=== PATIENT | male | born 1970 | race Caucasian/White ===

== ENCOUNTER 2021-02-28 01:51 | Day surgery (SDC) | payer OTHER, SELFPAY ==
[2021-02-18 13:02] VITALS: BMI 33.2
[2021-02-28 09:43] VITALS: BP 139/86; PULSE 83; RESP 18; TEMP 36.1; O2SAT 98
[2021-02-28] MEDS: LACTATED RINGERS 1,000 ML 150 ML IV CONT (09:53)
--- NOTE | 2021-02-28 09:59 | P.PNAN_ITS ---
Anes - Initial Pre Proc Eval Procedure: Operation Date: 02/28/21 10:30 Proposed Procedures p Screening Colonoscopy - Jax Conte MD Date/Time: 02/28/21 09:59 Surgeon: Jax Conet MD Pre Op Diagnosis: neoplasm screening Patient Data Age: 50 Gender: M Height: 1.78 m Weight: 105.6 kg Last Vital Signs Temp 36.1 C L 02/28/21 09:43 Pulse 83 02/28/21 09:43 Resp 18 02/28/21 09:43 BP 139/86 02/28/21 09:43 Pulse Ox 98 02/28/21 09:43 Allergies Allergy/AdvReac Type Severity Reaction Status Date / Time morphine Allergy Unknown Other Verified 02/28/21 09:42 Home Medications Medication Instructions Recorded Confirmed Type No Home Medications 02/18/21 02/18/21 History Patient hx anesthesia problems: none Family hx anesthesia problems: none Results Review: All pre-operative results and documents have been reviewed as part of the pre-operative evaluation. [facility] Past Medical History Medical History (Updated 02/28/21 @ 09:59 by Gerson Ledesma MD) Overweight Surgical History Surgical History (Updated 02/28/21 @ 09:59 by Gerson Ledesma MD) S/P thoracotomy Family History Family History Other Cerebrovascular accident Diabetes mellitus Family history of arthritis Family history of gout Hypertension Social History Social History Smoking status: Former smoker Tobacco type: cigarettes Alcohol intake: current Drinks per week: 8 Living arrangements: with family Spiritual care concerns: No Anes - Eval Final PreProcedure Day of Procedure 02/28/21 09:59 Patient weight: obese Heart: regular rate and rhythm Lungs: clear to auscultation Airway: Mallampati scale class II Neurological: alert and oriented Last oral intake: >/= 8 hours ASA classification: II Emergent: no Anesthetic plan: proceed Anesthesia type and monitoring: general GIVS and standard monitoring Results Review: All pre-operative results and documents have been reviewed as part of the pre-operative evaluation. Informed Consent: The patient's anesthetic plan and its attendant risks and benefits were discussed with the patient/family/POA. Questions were solicited and answers provided to the satisfaction of the patient/family/POA.
--- NOTE | 2021-02-28 10:22 | PM.HPGS ---
History of Present Illness History of Present Illness Consent: Risks, benefits, and alternatives have been discussed and questions answered. Patient agrees to proceed with procedure. Chief complaint: neoplasm screening Narrative: Jaime Moya is a 50 year old male here for first screening colonoscopy Review of Systems Constitutional: Constitutional: Denies headache(s) and Denies weakness Eyes: Eyes: Denies blurry vision ENT: Reports Normal hearing present, Denies headache(s) and Denies neck pain Cardiovascular: Cardiovascular: Denies chest pain and Denies dyspnea Respiratory: Respiratory: Denies dyspnea Gastrointestinal: Gastrointestinal: Reports no additional gastrointestinal complaints Genitourinary: Genitourinary: Denies dysuria Musculoskeletal: Musculoskeletal: Denies neck pain Integumentary/Breasts: Skin/Breast: Denies dry skin Neurologic: Reports Normal hearing present, Denies headache(s) and Denies weakness Psychiatric: Psychiatric: Denies anxiety Endocrine: Endocrine: Denies change in body appearance Hematologic/Lymphatic: Hematologic/Lymphatic: Denies easy bleeding Allergic/Immunologic: Allergic/Immunologic: Denies urticaria PMFSH Past Medical History Medical History (Updated 02/28/21 @ 10:22 by Jax Conte MD) Colon cancer screening Overweight Surgical History Surgical History (Updated 02/28/21 @ 09:59 by Gerson Ledesma MD) S/P thoracotomy Family History Family History Other Cerebrovascular accident Diabetes mellitus Family history of arthritis Family history of gout Hypertension Social History Social History Smoking status: Former smoker Tobacco type: cigarettes Alcohol intake: current Drinks per week: 8 Living arrangements: with family Spiritual care concerns: No Meds Home Medications and Allergies Home Medications Medication Instructions Recorded Confirmed Type No Home Medications 02/18/21 02/18/21 History Allergies Allergy/AdvReac Type Severity Reaction Status Date / Time morphine Allergy Unknown Other Verified 02/28/21 09:42 Vital Signs Vital Signs - 24 hr 02/28/21 09:43 Temperature 97.0 F L Pulse Rate 83 Respiratory Rate 18 Blood Pressure 139/86 Pulse Oximetry 98 Exam Const: General: comfortable and no acute distress HENMT: General nose exam: Normal nares present Eyes: General: appearance normal, both eyes and all related structures Neck: Neck: no JVD Resp: Auscultation: clear to auscultation bilaterally Cardio: Rate: regular rate Rhythm: regular rhythm GI: Inspection: non-distended GI Palp: Yes Soft to palpation Skin: General skin exam: normal color Neuro: General: gait normal Speech: normal speech Extrem: General: normal to inspection Psych: Mental Status: mental status grossly normal Assessment and Plan Assessment and plan (1) Colon cancer screening: Code(s): Z12.11 - Encounter for screening for malignant neoplasm of colon Status: Acute Assessment and Plan: colonoscopy
[2021-02-28 10:46] VITALS: BP 116/71; PULSE 91; RESP 15; O2SAT 99
[2021-02-28 10:56] VITALS: PULSE 83; RESP 17; O2SAT 98
[2021-02-28 11:01] VITALS: BP 125/77; PULSE 76; RESP 22; O2SAT 99
== END 2021-02-28 11:15 | disposition home or self-care (01) ==
PROVIDERS: PCP Family Medicine; Visit Provider Internal Medicine Gastroenterology
PROC: 0DJD8ZZ Inspection of Lower Intestinal Tract, Via Natural or Artificial Opening Endoscopic (ICD-10-PCS; CPT 45378; principal; 2021-02-28 10:30)
DX: Z12.11 Encounter for screening for malignant neoplasm of colon (principal); D12.4 Benign neoplasm of descending colon; D12.5 Benign neoplasm of sigmoid colon; K57.30 Diverticulosis of large intestine without perforation or abscess without bleeding; K64.8 Other hemorrhoids
CPT/HCPCS: 45385; 88305; J2704; J7120

== ENCOUNTER 2023-04-06 16:06 | Emergency (ER) | payer OTHER, SELFPAY ==
--- NOTE | ~2023-04-06 | XR_ITS ---
XR chest 1V DATE: 04/06/2023 16:53 INDICATION: Cough, fever TECHNIQUE: PA chest COMPARISON: None FINDINGS: There is prominent patchy consolidation of the left lung, particularly prominent in the lef t mid and upper lung [place]. The right lung is clear. Normal heart size. No pleural effusion or pneumothorax is detected. Mild thoracic scoliosis. IMPRESSION: Extensive left lung infiltrate, likely due to pneumonia Reviewed, dictated and finalized at location B. IOVASCULAR TECHNOLOGIST
[2023-04-06 16:08] VITALS: BP 153/109; PULSE 123; RESP 22; TEMP 39.3; O2SAT 100
[2023-04-06 17:06] LABS: Influenza A QL RT-PCR Negative (Negative); Influenza B QL RT-PCR Negative (Negative); RSV RNA, RT-PCR Negative (Negative); SARS-CoV-2 RNA PCR Negative (Negative)
--- NOTE | 2023-04-06 20:21 | ECG_ITS ---
Measurements Intervals [place] Rate: 92 P: 65 NE: 144 QRS: 19 QRSD: 96 T: 42 QT: 296 QTc: 367 Interpretive Statements SINUS RHYTHM DELAYED PRECORDIAL R/S TRANSITION BASELINE ARTIFACT- I, II, AVR, AVF BORDERLINE ECG NO PREVIOUS ECG AVAILABLE FOR COMPARISON Electronically Signed On 04-07-2023 8:10:58 [employer]NAGER PERFORMANCE by Zaki Pathak D.O.
--- NOTE | 2023-04-06 20:22 | ED.URI ---
HPI - URI/Sore Throat General Chief Complaint: Upper Respiratory Infection <Nury Odonnell PA-C - Last Filed: 04/06/23 23:56> Stated Complaint: fever X5 days <ANGELICA Wiley Last Filed: 04/06/23 23:56> Time Seen by Provider: 04/06/23 20:02 <Nury Odonnell PA-C - Last Filed: 04/06/23 23:56> History of Present Illness HPI Narrative: 52-year-old male reports for evaluation with his at bedside for URI symptoms and fever x5 days. Patient states 5 days ago, he began feeling ill so took his temperature and it was around 102. States since then his temperature has been between 102-103 at home. He reports a intermittent productive cough, chills, diaphoresis and headache. States this headache is worse with coughing. He reports generalized malaise. States he went to his PCP's office 2 days ago and had a negative flu test. The was concerned that the patient did not really his symptoms effectively to the PCP, therefore called the PCP's office to describe patient's symptoms and they advised the patient to go to the ER for further evaluation. he denies chest pain, abdominal pain, nausea, vomiting, diarrhea, dysuria or hematuria, lower extremity edema or rash , sore throat or otalgia. <Nury Odonnell PA-C - Last Filed: 04/06/23 23:56> Related Data Allergies/Adverse Reactions: Allergies Allergy/AdvReac Type Severity Reaction Status Date / Time morphine Allergy Unknown Other Verified 04/06/23 20:47 <Nury Odonnell PA-C - Last Filed: 04/06/23 23:56> Review of Systems Review of Systems: CONSTITUTIONAL: See H EYES: Denies visual changes, redness, or discharge. ENT: see HPI CARDIOVASCULAR: Denies chest pain, palpitations, or edema. RESPIRATORY: see HPI GASTROINTESTINAL: Denies abdominal pain, nausea, vomiting, or diarrhea. GENITOURINARY: Denies dysuria or hematuria. SKIN: Denies rash or itching. MUSCULOSKELETAL: Denies back pain, joint pain, or myalgia. NEUROLOGIC: see HPI PSYCHIATRIC: Denies anxiety or depression. <Nury Odonnell PA-C - Last Filed: 04/06/23 23:56> [facility] Past Medical History Medical History: Medical History Colon cancer screening Overweight <Nury Odonnell PA-C - Last Filed: 04/06/23 23:56> Surgical History Surgical History: Surgical History S/P thoracotomy <Nury Odonnell PA-C - Last Filed: 04/06/23 23:56> Family History Family History: Family History Other Cerebrovascular accident Diabetes mellitus Family history of arthritis Family history of gout Hypertension <Nury Odonnell PA-C - Last Filed: 04/06/23 23:56> Social History Social History: Social History Smoking status: Former smoker Tobacco type: cigarettes Alcohol intake: current Drinks per week: 8 Living arrangements: with family Spiritual care concerns: No <Nury Odonnell PA-C - Last Filed: 04/06/23 23:56> Exam Narrative: GENERAL: ill-appearing. In no acute distress. HEAD: Normocephalic, atraumatic. EYES: PERRLA and EOMI. ENT: Nares clear, no rhinorrhea or epistaxis. Mucous membranes moist. posterior pharynx mildly erythematous. No tonsillar hypertrophy or edema. Uvula is midline. NECK: Supple. No nuchal rigidity CHEST: no respiratory distress. Mild crackles in the left lower lobe. No wheezing, rhonchi. HEART: Regular rate and rhythm. No murmur heard. Normal peripheral pulses. ABDOMEN: Soft, nontender, nondistended, normal active bowel sounds. No guarding, rebound or rigidity. EXTREMITIES: Normal range of motion. No edema. SKIN: Warm, dry, no rash. NEURO: No focal deficits. Alert and oriented x3 <Nury Odonnell PA-C - Last Filed: 04/06/23 23:56> [employer]/PA P
[2023-04-06] MEDS: ACETAMINOPHEN 500 MG TABLET 1000 MG PO (20:49)
[2023-04-06] MEDS: KETOROLAC 30 MG/ML VIAL (*BKC) IV PUSH (20:50)
[2023-04-06 20:53] LABS: Basophils Absolute Auto 0.1 K/mm3 (0.0-0.1); Basophils Percent Auto 0.5 % (0.2-1.2); Eosinophils Absolute Auto 0.2 K/mm3 (0-0.3); Hematocrit 44.9 % (42.0-52.0); Hemoglobin 15.4 g/dL (14.0-18.0); Immature Granulocyte Absolute 0.02 K/mm3 (0.00-0.031); Immature Granulocyte Percent A 0.2 % (0-0.5); Lymphocytes Absolute Auto 1.47 K/mm3 (0.9-3.2); Mean Corpuscular HGB Conc 34.3 g/dl (32-36); Mean Corpuscular Hemoglobin 32.7 pg (26-34); Mean Corpuscular Volume 95.3 fl (80-100); Mean Platelet Volume 11.1 fl (7.4-10.4); Monocytes Absolute Auto 0.8 K/mm3 (0.1-0.6); Monocytes Percent Auto 9.1 % (2.6-8.5); Neutrophils Absolute Auto 6.6 K/mm3 (1.3-6.7); Neutrophils Percent Auto 72.2 % (45.5-73.1); Platelet Count Result 282 k/mm3 (150-375); Red Blood Count 4.71 M/mm3 (4.6-6.20); Red Cell Distribution Width 12.5 % (11.5-14.5); White Blood Count 9.2 K/mm3 (4.5-10.0)
[2023-04-06 21:09] LABS: Prothrombin Time 13.3 Seconds (11.1-14.7)
[2023-04-06 21:11] LABS: Partial Thromboplastin Time 29.8 SECONDS (22.3-36.8)
[2023-04-06 21:14] LABS: Appearance Urine Clear (Clear); Bilirubin Urine Negative (Negative); Blood Urine Negative (Negative); Color Urine Yellow (Yellow); Glucose Urine UA Negative (Negative); Ketones Urine Negative (Negative); Leukocyte Esterase Ur Negative LEU/UL (Negative); Nitrate Urine Negative (Negative); Protein Urine Negative (Negative); Specific Grav Ur 1.015 (1.001-1.035); pH Urine 5.5 (5.0-9.0)
[2023-04-06 21:17] LABS: Add Urine Microscopic? NO
[2023-04-06 21:30] LABS: Lactic Acid Reflex 1.1 mmol/L (0.7-2.0)
[2023-04-06 21:34] LABS: Alanine Aminotransferase 63 U/L (6-50); Albumin Level 4.2 g/dL (3.5-5.1); Alkaline Phosphatase 64 U/L (38-126); Anion Gap 13 mmol/L (8-16); Aspartate Amino Transferase 37 U/L (17-59); Bilirubin,Total 1.1 mg/dL (0.2-1.3); Blood Urea Nitrogen 8 mg/dL (9-20); CRP 8.2 mg/dL (<1.0); Calcium 8.9 mg/dL (8.4-10.2); Carbon Dioxide 26 mmol/L (22-30); Chloride 97 mmol/L (98-107); Estimated CRCL calculation 92 ml/min; Estimated Glomerular Filt Rate > 60; Glucose 114 mg/dL (65-110); Potassium 3.8 mmol/L (3.4-5.0); Sodium 136 mmol/L (137-145)
[2023-04-06] MEDS: AZITHROMYCIN 500 MG/NS 250 ML 500 MG/250 ML BAG 250 MG IVPB (21:55)
[2023-04-06 22:12] VITALS: BP 139/84; PULSE 91; RESP 21; TEMP 37.2; O2SAT 93
[2023-04-06 22:31] VITALS: BP 122/84; PULSE 81; RESP 16; TEMP 36.4; O2SAT 97
[2023-04-06] MEDS: SODIUM CHLORIDE 0.9% IV 3,200 ML/1,000 ML BAG 999 ML IV CONT ×2 (22:33→22:59)
[2023-04-07 00:16] VITALS: BP 130/80; PULSE 80; RESP 15; TEMP 36.4; O2SAT 100
== END 2023-04-07 00:16 | disposition home or self-care (01) ==
PROVIDERS: Student in an Organized Health Care Education/Training Program; Emergency Provider Physician Assistant; PCP Family Medicine
DX: J18.9 Pneumonia, unspecified organism (principal); Z20.822 Contact with and (suspected) exposure to COVID-19; E66.3 Overweight; Z68.33 Body mass index [BMI] 33.0-33.9, adult; Z87.891 Personal history of nicotine dependence
CPT/HCPCS: 36415; 71045; 80053; 81003; 83605; 85025; 85610; 85730; 86140; 87040; 87637; 93005; 96361; 96365; 96367; 96375; 99284; A9270; J0456; J0696; J1885; J7030

== ENCOUNTER → 2023-05-08 16:42 | Outpatient (CLI) | payer OTHER, SELFPAY ==
--- NOTE | ~2023-05-08 | XR_ITS ---
EXAMINATION: XR chest 2V DATE: 05/08/2023 17:08 INDICATION: Pneumonia. TECHNIQUE: Frontal and lateral views of the chest were obtained. COMPARISON: Chest single view 04/06/2023 FINDINGS: There is mild atelectasis in the lower lung zones. No pleural effusion or pneumothorax. The heart size is normal. There are surgical clips in left superior mediastinum. IMPRESSION: 1. Mild atelectasis in the lower lung zones. Reviewed, dictated and finalized at location E. [employer] PROGRAMS DIRECTOR
== END ==
PROVIDERS: PCP Nurse Practitioner Family; Visit Provider Nurse Practitioner Family
DX: R91.8 Other nonspecific abnormal finding of lung field (principal); J18.9 Pneumonia, unspecified organism
CPT/HCPCS: 71046

== ENCOUNTER 2023-06-01 16:28 | Outpatient (CLI) | payer OTHER, SELFPAY ==
--- NOTE | ~2023-06-01 | XR_ITS ---
XR chest 2V 06/01/2023 16:51 Indication: Atelectasis Procedure: 2 view chest Comparison: Comparison to multiple prior studies sequentially, with oldest reviewed study dated 07/2011. Findings: There is chronic bibasilar atelectasis/scarring unchanged from prior studies. No acute foca l pneumonia, edema, pleural effusion or pneumothorax. No acute osseous abnormality. Impression: 1: No acute cardiopulmonary disease. 2: Chronic bibasilar atelectasis/scarring. Reviewed, dictated and finalized at location A. Impression: 1: No acute cardiopulmonary disease. 2: Chronic bibasilar atelectasis/scarring.
== END 2023-06-01 16:29 ==
PROVIDERS: PCP Nurse Practitioner Family; Visit Provider Nurse Practitioner Family
DX: J98.11 Atelectasis (principal); R91.8 Other nonspecific abnormal finding of lung field
CPT/HCPCS: 71046

== ENCOUNTER 2024-02-20 16:06 | Outpatient (CLI) | payer OTHER, SELFPAY ==
--- NOTE | ~2024-02-20 | XR_ITS ---
XR chest 2V 02/20/2024 16:18 Indication: Chronic cough Procedure: 2 view chest Comparison: Comparison to multiple prior studies sequentially, with oldest reviewed study dated 07/2011. Findings: Heart size normal. There is chronic unchanged left lower pleural thickening. No acute osseo us abnormality. There is right basilar atelectasis/scarring. No acute focal pneumonia, edema or pneum othorax. Impression: 1: No acute cardiopulmonary disease. Reviewed, dictated and finalized at location B. TRIC STOP INSTALLER Impression: 1: No acute cardiopulmonary disease.
== END 2024-02-20 16:07 | disposition home or self-care (01) ==
LOC: MICIMG 16:06
DX: R05.3 Chronic cough (principal)
CPT/HCPCS: 71046

== ENCOUNTER 2024-06-03 16:33 | Outpatient (CLI) | payer OTHER, SELFPAY ==
--- NOTE | ~2024-06-03 | XR_ITS ---
XR chest 2V 06/03/2024 16:56 Indication: Atelectasis Procedure: 2 view chest Comparison: 02/20/2024 Findings: Small left pleural effusion versus pleural thickening. Minimal subsegmental atelectasis of the lung bases. Healed left seventh rib fracture. Heart size normal. No acute focal pneumonia, edema, pneumothorax. Impression: 1: Small left pleural effusion versus pleural thickening. Reviewed, dictated and finalized at location B. Impression: 1: Small left pleural effusion versus pleural thickening.
== END 2024-06-03 16:34 | disposition home or self-care (01) ==
LOC: MICIMG 16:34
PROVIDERS: PCP Physician Assistant; Visit Provider Physician Assistant
DX: J98.11 Atelectasis (principal)
CPT/HCPCS: 71046

== ENCOUNTER 2024-07-17 08:22 | Outpatient (CLI) | payer OTHER, SELFPAY ==
--- NOTE | ~2024-07-17 | CT_ITS ---
Clinical Indication: Pelvic pain CT Scan of the Chest, Abdomen, and Pelvis with Contrast: Technique: Contiguous sections were acquired throughout the chest, abdomen, and pelvis after intraven ous administration of 100 cc of Omnipaque 350. Dose reduction technique was used on this scan by uti lizing automated exposure control and iterative reconstruction technique. The dose-length product (DL P) was 1503.36 mGy-cm. Findings: Shotty mediastinal lymph nodes are not frankly enlarged by size criteria. The mediastinal soft tissue s and vascular structures otherwise appear normal. There is no evidence of pleural or pericardial effusion. There is postoperative change at the left lung apex/upper lobe region. There is groundglass consolida tion at the left lower lobe measuring up to approximately 3.5 x 2.2 cm in extent (axial image 95). Pr obable mild left basilar atelectatic change or pleural thickening. Right lung clear.. There is diffuse hepatic steatosis. Spleen is enlarged, measuring 14.6 cm in AP dimension. The pancre as, gallbladder, adrenals and kidneys are within normal limits. No evidence of aortic aneurysm. No lymphadenopathy. No bowel obstruction or bowel wall thickening. There is no evidence to suggest acute appendicitis. Urinary bladder is unremarkable. No pelvic mass evident. No ascites. Impression: No abnormality of the pelvis/perineum identified. 3.5 x 2.2 cm area of groundglass consolidation in the left lower lobe. This could reflect pneumonia o r other inflammatory process. Follow-up exam advised in 1-3 months to reassess. Diffuse hepatic steatosis. Mild splenomegaly. Postoperative change left upper lobe. Reviewed, dictated and finalized at [facility]. Impression: No abnormality of the pelvis/perineum identified. 3.5 x 2.2 cm area of groundglass consolidation in the left lower lobe. This cou ld reflect pneumonia or other inflammatory process. Follow-up exam advised in 1 -3 months to reassess. Diffuse hepatic steatosis. Mild splenomegaly. Postoperative change left upper lobe.
== END 2024-07-17 08:23 | disposition home or self-care (01) ==
LOC: MICIMG 08:23
PROVIDERS: PCP Physician Assistant; Visit Provider Physician Assistant
DX: R91.8 Other nonspecific abnormal finding of lung field (principal); J18.1 Lobar pneumonia, unspecified organism; K76.0 Fatty (change of) liver, not elsewhere classified; R16.1 Splenomegaly, not elsewhere classified; Z98.890 Other specified postprocedural states
CPT/HCPCS: 71260; 74177; Q9967